=== PATIENT | female | born 1980 | race Hispanic/Latino ===

== ENCOUNTER 2017-03-27 18:13 | Emergency (ER) | payer MEDICAID ==
[2017-05-09] MEDS ORDERED: fish oil PO (10:13)
[2017-05-09] MEDS ORDERED: multivitamin PO (10:13)
[2017-05-09] MEDS ORDERED: CALC-1121 PO (10:13)
[2017-05-09] MEDS ORDERED: L.AC1CAP6 PO (10:13)
== END 2017-03-27 18:57 | disposition home or self-care (01) ==
LOC: EDH 18:13
DX: R20.2 Paresthesia of skin (principal); K21.9 Gastro-esophageal reflux disease without esophagitis; B96.81 Helicobacter pylori [H. pylori] as the cause of diseases classified elsewhere; D64.9 Anemia, unspecified; Z87.891 Personal history of nicotine dependence
CPT/HCPCS: 99281

== ENCOUNTER 2017-04-01 00:42 | Emergency (ER) | payer MEDICAID ==
[2017-04-01 01:22] LABS: APPEARANCE,URINE Clear (CLEAR); BILIRUBIN,URINE Negative (NEGATIVE); COLOR,URINE Yellow (YELLOW); GLUCOSE, URINE (UA) Negative (NEGATIVE); KETONES,URINE Negative (NEGATIVE); LEUKOCYTE ESTERASE ,URINE Small (NEGATIVE); NITRATE,URINE Negative (NEGATIVE); OCCULT BLOOD,URINE Negative (NEGATIVE); PROTEIN,URINE Negative (NEGATIVE); UROBILINOGEN,URINE 0.2 mg/dL (0.2-1.0)
[2017-04-01 01:24] LABS: BACTERIA,URINE Rare /HPF (None Seen); RBC,URINE None Seen /HPF (0-1); SQUAMOUS EPITHELIAL CELL,UR Rare /LPF (0-2); WBC,URINE 0-1 /HPF (0-1)
[2017-05-09] MEDS ORDERED: CALC-1121 PO (10:13)
[2017-05-09] MEDS ORDERED: fish oil PO (10:13)
[2017-05-09] MEDS ORDERED: L.AC1CAP6 PO (10:13)
[2017-05-09] MEDS ORDERED: multivitamin PO (10:13)
== END 2017-04-01 01:47 | disposition home or self-care (01) ==
LOC: EDH 00:42
DX: R10.13 Epigastric pain (principal); R20.2 Paresthesia of skin; B96.81 Helicobacter pylori [H. pylori] as the cause of diseases classified elsewhere; K21.9 Gastro-esophageal reflux disease without esophagitis; D64.9 Anemia, unspecified
CPT/HCPCS: 81001; 81025

== ENCOUNTER 2017-05-10 08:44 | Day surgery (SDC) | payer MEDICAID ==
[~2017-05-10] VITALS: Ht 162.6 cm; Wt 70.7 kg
[~2017-05-10 08:44] MED LIST: CALC-1121 PO; L.AC1CAP6 PO; SODIUM CHLORIDE 0.9% 1000ML 1,000 ML IV ONE; fish oil PO; multivitamin PO
[2017-05-10 10:44] VITALS: BP_SYST 87; BP_SYST 99; BP_DIAS 51; BP_DIAS 59
[2017-05-10] MEDS ORDERED: PROPOFOL 10 MG/ML 20ML VIAL IV ONE ×2 (11:28)
[2017-05-10 11:50] VITALS: BP 99/57
[2017-05-10 11:55] VITALS: BP 104/58
[2017-05-10 12:00] VITALS: BP 107/54
[2017-05-10 12:09] VITALS: BP 109/63
== END 2017-05-10 12:20 | disposition home or self-care (01) ==
LOC: ENDO 08:44 → DAH 08:44 → ENDO 12:20
PROVIDERS: ATTEND Internal Medicine
DX: K59.01 Slow transit constipation (principal); K57.30 Diverticulosis of large intestine without perforation or abscess without bleeding; K64.8 Other hemorrhoids; K31.89 Other diseases of stomach and duodenum; K29.60 Other gastritis without bleeding; F41.9 Anxiety disorder, unspecified; Z98.890 Other specified postprocedural states; Z79.899 Other long term (current) drug therapy
CPT/HCPCS: 43239; 45378; 81025; 88305; 88342; A4606; J2704 ×2; J7030

== ENCOUNTER 2018-11-16 19:31 | Emergency (ER) | payer BC, MEDICAID ==
[~2018-11-16 19:31] MED LIST changes: -SODIUM CHLORIDE 0.9% 1000ML 1,000 ML IV ONE
== END 2018-11-16 20:03 | disposition home or self-care (01) ==
LOC: EDH 19:31
DX: S86.911A Strain of unspecified muscle(s) and tendon(s) at lower leg level, right leg, initial encounter (principal); K21.9 Gastro-esophageal reflux disease without esophagitis; Z88.1 Allergy status to other antibiotic agents; Z72.0 Tobacco use; X58.XXXA Exposure to other specified factors, initial encounter; Y93.89 Activity, other specified; Y92.39 Other specified sports and athletic area as the place of occurrence of the external cause; Y99.8 Other external cause status

== ENCOUNTER 2020-04-07 09:01 | Emergency (ER) | payer BC ==
[2020-04-07 09:34] LABS: BASOPHILS % (AUTO) 0.4 % (0.0-5.0); EOSINOPHILS % (AUTO) 0.9 % (0.0-8.0); HEMATOCRIT 39.3 % (36-48); LYMPHOCYTES % (AUTO) 32.1 % (21.0-51.0); MEAN CORPUSCULAR HEMOGLOBIN 29.3 pg (27.0-33.0); MEAN CORPUSCULAR HGB CONC 32.8 g/dL (32.0-36.0); MEAN CORPUSCULAR VOLUME 89.1 fL (79-99); MONOCYTES % (AUTO) 5.8 % (3.0-13.0); NEUTROPHILS % (AUTO) 60.5 % (40.0-77.0); PLATELET COUNT (AUTO) 379 K/uL (130-400); RED BLOOD CELL COUNT(AUTO) 4.41 MIL/uL (4.00-5.50); RED CELL DISTRIBUTION WIDTH 11.8 % (11.0-15.5); WHITE BLOOD COUNT (AUTO) 6.9 K/uL (4.8-10.8)
[2020-04-07 09:45] LABS: CREATININE 0.9 mg/dL (0.5-1.5)
[2020-04-07 09:50] LABS: BILIRUBIN,TOTAL 0.3 mg/dL (0.2-1.0); TOTAL PROTEIN, SERUM 8.4 g/dL (6.0-8.3)
== END 2020-04-07 10:47 | disposition home or self-care (01) ==
LOC: EDH 09:01
DX: M79.18 Myalgia, other site (principal); G93.3 Postviral and related fatigue syndromes; K21.9 Gastro-esophageal reflux disease without esophagitis; Z98.890 Other specified postprocedural states; Z87.891 Personal history of nicotine dependence; Z88.1 Allergy status to other antibiotic agents
CPT/HCPCS: 36415; 80053; 85025

== ENCOUNTER 2020-10-06 07:44 | Observation (INO) | payer BC ==
[~2020-10-06] VITALS: Ht 162.6 cm; Wt 74.4 kg
[2020-10-06 08:12] LABS: BASOPHILS % (AUTO) 0.7 % (0.0-5.0); EOSINOPHILS % (AUTO) 0.7 % (0.0-8.0); HEMATOCRIT 38.9 % (36-48); LYMPHOCYTES % (AUTO) 37.1 % (21.0-51.0); MEAN CORPUSCULAR HEMOGLOBIN 29.9 pg (27.0-33.0); MEAN CORPUSCULAR HGB CONC 33.2 g/dL (32.0-36.0); MONOCYTES % (AUTO) 5.8 % (3.0-13.0); NEUTROPHILS % (AUTO) 55.5 % (40.0-77.0); PLATELET COUNT (AUTO) 337 K/uL (130-400); RED BLOOD CELL COUNT(AUTO) 4.32 MIL/uL (4.00-5.50); RED CELL DISTRIBUTION WIDTH 12.2 % (11.0-15.5); WHITE BLOOD COUNT (AUTO) 5.5 K/uL (4.8-10.8)
[2020-10-06 08:14] VITALS: BP 122/65
[2020-10-06 08:20] LABS: CREATININE 0.8 mg/dL (0.5-1.5); POTASSIUM 3.9 mmol/L (3.5-5.1)
[2020-10-06 08:21] LABS: APPEARANCE,URINE Cloudy (CLEAR); BILIRUBIN,URINE Negative (NEGATIVE); COLOR,URINE Yellow (YELLOW); GLUCOSE, URINE (UA) Negative (NEGATIVE); KETONES,URINE 40 mg/dL (NEGATIVE); LEUKOCYTE ESTERASE ,URINE Moderate (NEGATIVE); NITRATE,URINE Negative (NEGATIVE); OCCULT BLOOD,URINE Nonhemolyzed Trace (NEGATIVE); PROTEIN,URINE Trace mg/dL (NEGATIVE)
[2020-10-06 08:24] LABS: ALBUMIN 3.9 g/dL (3.5-5.0); BILIRUBIN,TOTAL 0.4 mg/dL (0.2-1.0); TOTAL PROTEIN, SERUM 8.2 g/dL (6.0-8.3)
[2020-10-06 08:32] LABS: BACTERIA,URINE Few /HPF (None Seen); RBC,URINE 0-1 /HPF (0-1); SQUAMOUS EPITHELIAL CELL,UR Moderate /HPF (0-2); WBC,URINE 0-1 /HPF (0-1)
[2020-10-06 11:17] VITALS: BP 112/66
[2020-10-06] MEDS ORDERED: GADOTERATE MEGLUMINE 10 MMOL/20 ML VIAL IV ONE (11:18)
[2020-10-06 11:37] LABS: THYROID STIMULATING HORMONE 1.65 uIU/mL (0.36-3.74)
[2020-10-06 16:00] VITALS: BP 133/78
[2020-10-06] MEDS ORDERED: TEMAZEPAM 7.5 MG CAPSULE PO PRN (16:00)
[2020-10-06] MEDS ORDERED: TRAMADOL HCL 50 MG TABLET PO PRN (16:00)
[2020-10-06 20:00] VITALS: BP 96/66
[2020-10-06] MEDS ORDERED: PNV1COMB11 PO (20:31)
[2020-10-07 00:08] VITALS: BP 103/65
[2020-10-07 00:55] LABS: CREATINE KINASE, TOTAL 65 U/L (21-232); MYOGLOBIN 20 ng/mL (10-92); TROPONIN I < 0.04 ng/mL (0.00-0.06)
[2020-10-07 04:00] VITALS: BP 105/63
[2020-10-07 04:53] LABS: BASOPHILS % (AUTO) 0.4 % (0.0-5.0); EOSINOPHILS % (AUTO) 1.2 % (0.0-8.0); MEAN CORPUSCULAR HEMOGLOBIN 29.7 pg (27.0-33.0); MEAN CORPUSCULAR HGB CONC 33.6 g/dL (32.0-36.0); MEAN CORPUSCULAR VOLUME 88.5 fL (79-99); MONOCYTES % (AUTO) 6.4 % (3.0-13.0); NEUTROPHILS % (AUTO) 57.5 % (40.0-77.0); PLATELET COUNT (AUTO) 338 K/uL (130-400); RED BLOOD CELL COUNT(AUTO) 4.07 MIL/uL (4.00-5.50); RED CELL DISTRIBUTION WIDTH 12.2 % (11.0-15.5); WHITE BLOOD COUNT (AUTO) 8.2 K/uL (4.8-10.8)
[2020-10-07 05:01] LABS: HEMOGLOBIN A1C 4.8 % (4.0-6.0)
[2020-10-07 05:11] LABS: CREATININE 0.8 mg/dL (0.5-1.5); POTASSIUM 3.9 mmol/L (3.5-5.1)
[2020-10-07 07:30] VITALS: BP 110/69
[2020-10-07] MEDS ORDERED: GADOTERATE MEGLUMINE 10 MMOL/20 ML VIAL IV ONE (08:55)
[2020-10-07] MEDS ORDERED: ASPIRIN 81MG CHEW TAB PO SCH (09:00)
[2020-10-07 11:00] VITALS: BP 104/64
== END 2020-10-07 17:00 | disposition home or self-care (01) ==
LOC: EDH 07:44 → EDHIP 10:30 → INTOOBSV 10:30 → 3DH 13:19
PROVIDERS: ADMIT Internal Medicine Infectious Disease; ATTEND Internal Medicine Infectious Disease
DX: G45.9 Transient cerebral ischemic attack, unspecified (principal); R53.1 Weakness; G47.00 Insomnia, unspecified; R07.89 Other chest pain; R20.8 Other disturbances of skin sensation; F12.90 Cannabis use, unspecified, uncomplicated; G51.0 Bell's palsy; R29.701 NIHSS score 1; Z98.891 History of uterine scar from previous surgery; Z79.82 Long term (current) use of aspirin
CPT/HCPCS: 36415 ×2; 70450; 70544; 70549; 70553; 72156; 72157; 72158; 80048; 80053; 80061; 81001; 82550 ×3; 83036; 83735; 83874; 84439; 84443; 84484 ×4; 85025 ×2; 86038; 86215; 86235 ×7; 86431; 87088; 93005; 93306; 93356; 99285; A9575 ×2; G0378 ×30

== ENCOUNTER 2023-08-08 19:51 | Emergency (ER) | payer OTHER ==
[~2023-08-08] VITALS: Ht 162.6 cm; Wt 83.0 kg
[~2023-08-08 19:51] MED LIST changes: -L.AC1CAP6 PO; +PNV1COMB11 PO; -multivitamin PO
[2023-08-08 21:33] VITALS: BP 114/65; PULSE 75; RESP 18; O2SAT 99
== END 2023-08-08 21:39 | disposition home or self-care (01) ==
LOC: EDH 19:51
DX: M79.661 Pain in right lower leg (principal); F41.9 Anxiety disorder, unspecified; E78.00 Pure hypercholesterolemia, unspecified; Z79.899 Other long term (current) drug therapy; Z98.890 Other specified postprocedural states; Z88.8 Allergy status to other drugs, medicaments and biological substances
CPT/HCPCS: 93971

== ENCOUNTER 2024-03-01 07:19 | Emergency (ER) | payer OTHER ==
[~2024-03-01] VITALS: Ht 162.6 cm; Wt 85.3 kg
[2024-03-01 07:20] VITALS: O2SAT 98
[2024-03-01 07:25] VITALS: BP 109/71; PULSE 88; RESP 16; TEMP 98.1
[2024-03-01 08:07] LABS: APPEARANCE,URINE CLEAR (CLEAR); BILIRUBIN,URINE NEGATIVE (NEGATIVE); COLOR,URINE LIGHT-YELLOW (YELLOW); GLUCOSE, URINE (UA) NEGATIVE (NEGATIVE); KETONES,URINE 20 mg/dL (NEGATIVE); LEUKOCYTE ESTERASE ,URINE NEGATIVE Leu/uL (NEGATIVE); NITRATE,URINE NEGATIVE (NEGATIVE); OCCULT BLOOD,URINE NEGATIVE (NEGATIVE); PROTEIN,URINE NEGATIVE (NEGATIVE); UROBILINOGEN,URINE 0.2 mg/dL (0.2-1.0)
[2024-03-01] MEDS: LACTATED RINGERS 1000ML 1,000 ML IV ONE (08:20)
[2024-03-01 08:22] LABS: ADD UA MICROSCOPIC YES
[2024-03-01 08:25] LABS: BACTERIA,URINE RARE /HPF (None Seen); MUCUS,URINE RARE LPF (None Seen); RBC,URINE 0-1 /HPF (0-1); SQUAMOUS EPITHELIAL CELL,UR MOD /HPF (0-2); WBC,URINE 0-1 /HPF (0-1)
[2024-03-01 08:43] LABS: BASOPHILS # (AUTO) 0.06 K/uL (0.00-0.20); BASOPHILS % (AUTO) 0.9 % (0.0-5.0); EOSINOPHILS # (AUTO) 0.08 K/uL (0.00-0.70); EOSINOPHILS % (AUTO) 1.2 % (0.0-8.0); HEMATOCRIT 34.7 % (36-48); IMMATURE GRANULOCYTE ABSOLUTE 0.04 K/uL (0-1); LYMPHOCYTES # (AUTO) 1.7 K/uL (1.0-4.8); LYMPHOCYTES % (AUTO) 24.3 % (21.0-51.0); MEAN CORPUSCULAR HEMOGLOBIN 29.4 pg (27.0-33.0); MEAN CORPUSCULAR VOLUME 86.3 fL (79-99); MONOCYTES # (AUTO) 0.5 K/uL (0.1-1.0); MONOCYTES % (AUTO) 7.4 % (3.0-13.0); NEUTROPHILS # (AUTO) 4.5 K/uL (1.8-7.7); NEUTROPHILS % (AUTO) 65.6 % (40.0-77.0); PLATELET COUNT (AUTO) 386 K/uL (130-400); RED BLOOD CELL COUNT(AUTO) 4.02 MIL/uL (4.00-5.50); RED CELL DISTRIBUTION WIDTH 12.7 % (11.0-15.5); WHITE BLOOD COUNT (AUTO) 6.8 K/uL (4.8-10.8)
--- NOTE | 2024-03-01 08:43 | HMCIMG ---
CHEST 1VW REASON: cp COMPARISON: 12/29/2022 FINDINGS: Single view of the chest was obtained. Lungs are clear. Heart size is normal. There is no pulmonary vascular congestion. Mediastinum and bony thorax appear unremarkable. IMPRESSION: 1. Normal single view chest x-ray.
[2024-03-01 09:06] LABS: CREATININE 0.8 mg/dL (0.5-1.0); POTASSIUM 3.8 mmol/L (3.5-5.1)
[2024-03-01 09:10] LABS: ALBUMIN 3.6 g/dL (3.5-5.0); BILIRUBIN,TOTAL 0.3 mg/dL (0.2-1.0); TOTAL PROTEIN, SERUM 7.8 g/dL (6.0-8.3)
[2024-03-01] MEDS: PANTOPrazole 40 MG/VIAL IVP ONE (09:13)
[2024-03-01] MEDS: ketOROlac 15MG/ML VIAL (15MG/ML) IV ONE (09:51)
--- NOTE | 2024-03-01 09:57 | ERN ---
General Chief Complaint: Flank Pain Stated Complaint: LFT FLANK PAIN Time Seen by MD: 07:21 Source: patient History of Present Illness Initial Comments Patient is a 43-year-old female coming in complaining of left lower abdominal discomfort as well as gastritis. Per patient she has a history of gastritis frequently presents with epigastric discomfort. She states he was taking some medicine for gastritis which includes Govind chewable. Allergies: Coded Allergies: ciprofloxacin (Unverified Allergy, Unknown, 11/16/18) amoxicillin (Unverified Adverse Reaction, Severe, 03/01/24) FLANK PAIN AND RIB PAIN clavulanic acid (Unverified Adverse Reaction, Severe, 03/01/24) FLANK PAIN AND RIB PAIN Home Meds Reported Medications Vits #33/Iron/FA/Dha (Select-Ob + Dha Pack) 29 Mg Iron-1 Mg-250 Mg Combo..pkg, 1 EACH PO DAILY, COMB.PKG 10/06/20 Calcium Carb/Magnesium Hydrox (Rolaids Chewable Tablet) 1 Each Tab.chew, 1 EACH PO Q4HPRN PRN for q4hprn, TAB.CHEW HEARTBURN 05/09/17 [fish oil] No Conflict Check, 1 TAB PO DAILY 05/09/17 Past Medical History Past Medical History: High Cholesterol Past Surgical History: BTL, Surgical History Other: SEPTOPLASTY, FINGER, BTL REVERSAL Family History Family History: Negative Social History Social History: Smokers, Lives with family Female( History) : 3 Para: 1 Aborts: 2 ROS Dictation CONSTITUTIONAL: No chills, no fever, no weakness, no diaphoresis, no malaise. HEAD/FACE: No signs of trauma. EENT: No eye pain, no blurred vision, no tearing, no double vision, no ear pain, no ear discharge, no nose pain, no nasal congestion, no throat pain, no throat swelling, no mouth pain. RESPIRATORY: No cough, no orthopnea, no SOB, no stridor, no wheezing. CARDIOVASCULAR: No chest pain, no edema, no palpitations, no syncope. GASTROINTESTINAL/ABDOMINAL: abdominal pain, constipation, no diarrhea, no nausea, no vomiting. GENITOURINARY: No abnormal discharge, no dysuria, no frequent urination, no hematuria. No complaints of pain in the genitals. MUSCULOSKELETAL: No back pain, no gout, no joint pain, no joint swelling, no muscle pain, no muscle stiffness, no neck pain. INTEGUMENTARY: No change in color, no change in hair/nails, no dryness, no lesion, no lumps, no rash. NEUROLOGICAL/PSYCH: No anxiety, not depressed, no emotional problem, no headache, no numbness, no pre-existing deficit, no history of seizures, no tremors, no weakness. HEMATOLOGIC/LYMPHATIC: Not anemic, no history of blood clots, no apparent bleeding, no bruising, glands not swollen. All Systems Negative, Except as Noted. Physical Exam Physical Exam Dictation VITAL SIGNS: Reviewed. GENERAL APPEARANCE: Alert, oriented x3, no acute distress, obese. HEAD AND FACE: Non-traumatic. EYES: PERRL, pink conjunctivas, eyelid no trauma, anterior chamber clear. EARS: Pinnas intact and no signs of trauma or erythema. Ear canals clear and no discharge. TMs no erythema. NOSE: No discharge, no bleeding. OROPHARYNX: Mouth normal, teeth no caries, tongue pink. Pharynx clear, no erythema. Tonsils no exudates, no abscesses noted. Mucous membrane moist. NECK: Supple, non-tender, no thyromegaly, no masses, no JVD, no bruits. BREAST: Deferred. CHEST: No tenderness, no crepitus, no paradoxical movement, no retractions. LUNGS: Clear, well-ventilated, symmetric, no rales, no wheezing, no rhonchi, no stridor, good breath sounds bilaterally. HEART: Regular rate, regular rhythm, no murmur, no gallops. VASCULAR: No peripheral edema. ABDOMEN: Soft, positive bowel sounds, nondistended, no guarding, lower abdominal wall left tender, no rebound, no masses no hepatomegaly, no splenomegaly, no Pitt's sign, no hernias. RECTAL: Deferred. GENITAL: Deferred. NEUROLOGICAL: Normal speech, gross motor function intact, gross sensory function intact. MUSCULOSKELETAL: Neck nontender, full range of motion, back nontender, full range of motion. EXTREMITIES: Nontender, full range of motion. SKIN: Color pink, dry, no turgor, no rash, no lacerations, no abrasions, no contusions. LYMPHATICS: Deferred. Results Laboratory and Microbiology Lab and Micro Result Laboratory Tests Test 03/01/24 07:56 03/01/24 07:58 White Blood Count 6.8 K/uL (4.8-10.8) Red Blood Count 4.02 MIL/uL (4.00-5.50) Hemoglobin 11.8 g/dL (12.0-16.0) L Hematocrit 34.7 % (36-48) L Mean Corpuscular Volume 86.3 fL (79-99) Mean Corpuscular Hemoglobin 29.4 pg (27.0-33.0) Mean Corpuscular Hemoglobin Concent 34.0 g/dL (32.0-36.0) Red Cell Distribution Width 12.7 % (11.0-15.5) Platelet Count 386 K/uL (130-400) Mean Platelet Volume 8.7 fL (7.5-10.5) Immature Granulocyte % (Auto) 0.6 % (0-1) Neutrophils (%) (Auto) 65.6 % (40.0-77.0) Lymphocytes (%) (Auto) 24.3 % (21.0-51.0) Monocytes (%) (Auto) 7.4 % (3.0-13.0) Eosinophils (%) (Auto) 1.2 % (0.0-8.0) Basophils (%) (Auto) 0.9 % (0.0-5.0) Neutrophils # (Auto) 4.5 K/uL (1.8-7.7) Lymphocytes # (Auto) 1.7 K/uL (1.0-4.8) Monocytes # (Auto) 0.5 K/uL (0.1-1.0) Eosinophils # (Auto) 0.08 K/uL (0.00-0.70) Basophils # (Auto) 0.06 K/uL (0.00-0.20) Absolute Immature Granulocyte (auto 0.04 K/uL (0-1) Nucleated Red Blood Cells 0.0 % (0.0-0.19) Sodium Level 140 mmol/L (136-145) Potassium Level 3.8 mmol/L (3.5-5.1) Chloride Level 103 mmol/L (101-111) Carbon Dioxide Level 28 mmol/L (21-32) Blood Urea Nitrogen 8 mg/dL (7-18) Creatinine 0.8 mg/dL (0.5-1.0) Glomerular Filtration Rate Calc 94 mL/min (>90) Random Glucose 85 mg/dL (70-105) Total Calcium 8.8 mg/dL (8.5-10.1) Total Bilirubin 0.3 mg/dL (0.2-1.0) Aspartate Amino Transf (AST/SGOT) 52 U/L (10-37) H Alanine Aminotransferase (ALT/SGPT) 150 U/L (12-78) H Alkaline Phosphatase 70 U/L (50-136) Total Creatine Kinase 41 U/L (21-232) # Troponin I High Sensitivity 7 ng/L (4-50) Total Protein 7.8 g/dL (6.0-8.3) Albumin 3.6 g/dL (3.5-5.0) Serum Test, Qualitative NEGATIVE (NEGATIVE) Urine Color LIGHT-YELLOW (YELLOW) Urine Appearance CLEAR (CLEAR) Urine pH 7.0 (5.0-8.0) Urine Specific [place] 1.010 (1.001-1.031) Urine Protein NEGATIVE mg/dL (NEGATIVE) Urine Glucose (UA) NEGATIVE mg/dL (NEGATIVE) Urine Ketones 20 mg/dL (NEGATIVE) H Urine Occult Blood NEGATIVE (NEGATIVE) Urine Nitrate NEGATIVE (NEGATIVE) Urine Bilirubin NEGATIVE mg/dL (NEGATIVE) Urine Urobilinogen 0.2 mg/dL (0.2-1.0) Urine Leukocyte Esterase NEGATIVE Isaac/uL Urine RBC 0-1 /HPF (0-1) Urine WBC 0-1 /HPF (0-1) Urine Squamous Epithelial Cells MOD /HPF (0-2) Urine Bacteria RARE /HPF (None Seen) Labs Reviewed?: Yes EKG/XRAY/US/CT/MRI EKG Comment 03/01/2024 time 8:09 a.m. Ventricular rate 83 Sinus rhythm MS [address] wave elevation or depression X-RAY Comment IMAGING REPORT Signed PATIENT: HE SUAREZ MR#: [id number] : 1980 SEX: F AGE: 43 LOCATION: [facility] ORDER 6 STATUS: REG ER REPORT#: [id number] SERVICE 5 REASON: cp ORDERING PHYSICIAN: EMMA PEACE MD PROCEDURE: CXR1VW - CHEST 1VW CHEST 1VW REASON: cp COMPARISON: 12/29/2022 FINDINGS: Single view of the chest was obtained. Lungs are clear. Heart size is normal. There is no pulmonary vascular congestion. Mediastinum and bony thorax appear unremarkable. IMPRESSION: 1. Normal single view chest x-ray. DICTATED BY: JAZMINE CALERO MD DATE: 03/01/24839 ELECTRONICALLY SIGNED BY: JAZMINE CALERO MD DATE: 03/01/24842 [facility] MDM: Differential diagnosis: Gastritis, GERD, constipation Patient is a 43-year-old female coming in to be evaluated for lower left abdominal discomfort. Patient states that this has been ongoing for a couple of days. Along with the patient has a was chest pressure epigastric discomfort. Patient also states that she has been told she had elevated liver enzymes. Laboratory workup was positive for elevated liver enzymes. Patient's history is also that does not go to the restroom earlier early. Patient will be given medication constipation as well as long-term management of gastritis. I advised her appropriate follow up with PCP for ongoing evaluation of her chronic gastritis. ED Course Orders Procedure Category Date Status Time Cbc With Differential LAB 03/01/24 Complete 07:26 Chest 1vw RAD 03/01/24 Resulted 07:26 12 Lead Ekg Tracing- EKG 03/01/24 Logged Technical 07:26 Lactated Ringers PHA 03/01/24 Complete 1000ml (Lactated 07:30 Creatine Kinase, Total LAB 03/01/24 Complete 07:26 Troponin I High LAB 03/01/24 Complete Sensitivity 07:26 Urinalysis Profile LAB 03/01/24 Complete 07:26 Comprehensive LAB 03/01/24 Complete Metabolic Panel 07:26 Testing, LAB 03/01/24 Complete Serum Hcg 08:44 Drug Screen Urine LAB 03/01/24 Logged 08:45 Pantoprazole 40mg Inj PHA 03/01/24 Complete (Protonix 40mg Inj 09:00 Ketorolac PHA 03/01/24 In Process Tromethamine 15mg/Ml 10:00 Current Medications Medications (Trade) Dose Ordered Sig/Kim Route PRN Reason Start Time Stop Time Status Last Admin Dose Admin Ketorolac Tromethamine (toRADol) 15 mg ONCE ONCE IV 03/01/24 10:00 03/01/24 10:01 03/01/24 09:51 Lactated Ringer's 1,000 ml @ 0 mls/hr ONCE ONCE IV 03/01/24 07:30 03/01/24 07:32 DC 03/01/24 08:20 Pantoprazole Sodium (PROTonix 40MG INJ) 40 mg ONCE ONCE IVP 03/01/24 09:00 03/01/24 09:01 DC 03/01/24 09:13 Vital Signs Date Time Temp Pulse Resp B/P (MAP) Pulse Ox O2 Delivery O2 Flow Rate FiO2 03/01/24 07:25 98.1 88 16 109/71 98 Room Air 0 03/01/24 07:20 98.1 88 16 109/71 98 Room Air* 0 21 DX & DISP Disposition: Discharge Departure Impression: Primary Impression: Gastritis Additional Impression: Constipation Condition: Stable Scripts Linaclotide (Linzess) 72 Mcg Capsule 72 MCG PO DAILY for 30 Days, #30 CAP Prov: EMMA PEACE MD 03/01/24 Pantoprazole Sodium (Protonix) 40 Mg Ectab 1 TAB PO DAILY for 30 Days, #30 TAB 0 Refills Prov: EMMA PEACE MD 03/01/24 Additional Instructions: FOLLOW-UP WITH PRIMARY CARE PROVIDER IN 1 TO 2 DAYS. TAKE MEDICATIONS DIRECTED HERE IN THE EMERGENCY ROOM. OKAY TO CONTINUE HOME MEDICATIONS UNLESS OTHERWISE DISCUSSED DURING YOUR VISIT IN THE EMERGENCY ROOM TODAY. RETURN TO YOUR NEAREST EMERGENCY ROOM IF SYMPTOMS WORSEN OR IF THERE IS NO IMPROVEMENT. CALL 911 IF YOU NEED IMMEDIATE ASSISTANCE. TAKE TYLENOL [id number] NEEDED AND IF NO CONTRAINDICATIONS ARE PRESENT. INCREASE ORAL HYDRATION. A WOUND CULTURE OR URINE CULTURE WAS ORDERED HERE IN THE EMERGENCY ROOM DEPARTMENT PLEASE FOLLOW-UP WITH PRIMARY CARE PROVIDER AND ADVISE THEM TO GET REPEAT PORTS FROM OUR FACILITY. IF YOU HAD ANY LEE WRAP/SPLINTS THAT WERE APPLIED HERE, PLEASE DO NOT REMOVE THEM UNTIL YOU SEE YOUR PRIMARY CARE OR SPECIALTY. Referrals: Referrals: JEWEL WALTERS (PCP) Time of Disposition: 10:00 EMMA PEACE MD Mar 01, 2024 09:57
[2024-03-01] MEDS ORDERED: PANT40TA55 PO (10:01)
[2024-03-01] MEDS ORDERED: LINA72CA PO (10:01)
[2024-03-01 10:36] LABS: AMPHET/METH SCREEN,URINE NEGATIVE (NEGATIVE); BARBITURATE SCREEN, URINE NEGATIVE (NEGATIVE); BENZODIAZEPINES SCREEN,URINE NEGATIVE (NEGATIVE); CANNABINOID SCREEN,URINE NEGATIVE (NEGATIVE); COCAINE SCREEN,URINE NEGATIVE (NEGATIVE); OPIATE SCREEN,URINE NEGATIVE (NEGATIVE); PHENCYCLIDINE SCREEN,URINE NEGATIVE (NEGATIVE)
--- NOTE | 2024-03-02 05:22 | EKG ---
[facility] Test Date: 2024-03-01 Test Time: 08:09:50 Pat Name: HE SUAREZ Department: ED Room: Gender: F Mastic Man: [id number] : 1980 Requested By: EMMA PEACE Order Number: [id number] Reading MD: Issa Cole Measurements Intervals [place] Rate: 83 P: 27 [place]: 157 QRS: 67 QRSD: 91 T: 59 QT: 365 QTc: 429 Interpretive Statements Sinus rhythm Compared to ECG 10/06/2020 08:28:07 Sinus arrhythmia no longer present Electronically Signed On 03-03-2024 17:22:38 [employer] by Issa Cole Please click the below link to view image of tracing.
== END 2024-03-01 10:17 | disposition home or self-care (01) ==
LOC: EDH 07:19
DX: K29.70 Gastritis, unspecified, without bleeding (principal); K59.00 Constipation, unspecified; E78.00 Pure hypercholesterolemia, unspecified; F17.200 Nicotine dependence, unspecified, uncomplicated; Z88.0 Allergy status to penicillin; Z88.1 Allergy status to other antibiotic agents; Z98.51 Tubal ligation status
CPT/HCPCS: 99285; 96374; 96361; 71045; 96375; 82550; 84484; 80053; 80305; 84703; 85025; 36415; 93005; 81001; J7120; J2470; J1885; 99284

== ENCOUNTER 2024-03-01 23:29 | Emergency (ER) | payer OTHER ==
[~2024-03-01 23:29] MED LIST changes: +LINA72CA PO; +PANT40TA55 PO
--- NOTE | 2024-03-01 23:30 | NUR ---
PT SIGNED IN WANTING TO TALK TO A DOCTOR ABOUT HER VISIT HERE AT [facility] THIS MORNING AND TREATMENT RECEIVED. I EXPLAINED IT WAS A DIFFERENT DOCTOR AND IF I COULD HELP.. PT WANTED TO REVIEW HER CHART. I EXPLAINED I WAS UNALE TO DO THAT. PT REFUSED TRIAGE OR TREATMENT
== END 2024-03-01 23:32 | disposition left against medical advice (07) ==
LOC: EDH 23:29
DX: R10.9 Unspecified abdominal pain (principal); Z53.21 Procedure and treatment not carried out due to patient leaving prior to being seen by health care provider

== ENCOUNTER 2024-04-11 12:01 | Emergency (ER) | payer OTHER ==
[~2024-04-11] VITALS: Ht 162.6 cm; Wt 78.9 kg
--- NOTE | 2024-04-11 12:38 | NUR ---
Pending results for CT EXAM PT in ER [facility]
--- NOTE | 2024-04-11 13:38 | ERN ---
General Stated Complaint: RIGHT SIDE UTERINE PAIN Time Seen by MD: 12:03 Time Seen by Midlevel: 12:03 Source: patient History of Present Illness Initial Comments Patient is a 44-year-old female presenting to the emergency department with sudden onset of right lower quadrant abdominal pain that started this morning. Pain radiates to the right flank area. Denies any dysuria, hematuria, fever, chills, or any other symptoms at this time. Allergies: Coded Allergies: ciprofloxacin (Unverified Allergy, Unknown, 11/16/18) amoxicillin (Unverified Adverse Reaction, Severe, 03/01/24) FLANK PAIN AND RIB PAIN clavulanic acid (Unverified Adverse Reaction, Severe, 03/01/24) FLANK PAIN AND RIB PAIN Home Meds Active Scripts Linaclotide (Linzess) 72 Mcg Capsule, 72 MCG PO DAILY for 30 Days, #30 CAP Prov:EMMA PEACE MD 03/01/24 Pantoprazole Sodium (Protonix) 40 Mg Ectab, 1 TAB PO DAILY for 30 Days, #30 TAB 0 Refills Prov:EMMA PEACE MD 03/01/24 Reported Medications Vits #33/Iron/FA/Dha (Select-Ob + Dha Pack) 29 Mg Iron-1 Mg-250 Mg Combo..pkg, 1 EACH PO DAILY, COMB.PKG 10/06/20 Calcium Carb/Magnesium Hydrox (Rolaids Chewable Tablet) 1 Each Tab.chew, 1 EACH PO Q4HPRN PRN for q4hprn, TAB.CHEW HEARTBURN 05/09/17 [fish oil] No Conflict Check, 1 TAB PO DAILY 05/09/17 Past Medical History Past Medical History: High Cholesterol Past Surgical History: BTL, Surgical History Other: SEPTOPLASTY, FINGER, BTL REVERSAL Family History Family History: Negative Social History Social History: Smokers, Lives with family Female( History) : 3 Para: 1 Aborts: 2 ROS Dictation CONSTITUTIONAL: Negative except for HPI HEAD/FACE: Negative except for HPI EENT: Negative except for HPI RESPIRATORY: Negative except for HPI GASTROINTESTINAL/ABDOMINAL: Negative except for HPI GENITOURINARY: Negative except for HPI MUSCULOSKELETAL: Negative except for HPI INTEGUMENTARY: Negative except for HPI NEUROLOGICAL/PSYCH: Negative except for HPI HEMATOLOGIC/LYMPHATIC: Negative except for HPI All Systems Negative, Except as noted above. 13 point review of systems assessed and all negative except for above. Review of Systems: was completed, & the rest were negative. Physical Exam Physical Exam Dictation Vital Signs reviewed General Appearance: Alert, oriented x 3, no acute distress, well developed, nourished. Head and Face: non-traumatic. Eyes: PERRL, pink conjunctivas, eyelid no trauma, anterior chamber with arcus senilis. Ears: Pinnas intact and no signs of trauma or erythema ear canals clear and no discharge TM no erythema Nose: No discharge, no bleeding. Oropharynx: Mouth normal, tongue pink, pharynx clear,no erythema, tonsils no exudates, no abscesses noted, mucous membrane moist Neck: Supple, non-tender, no thyromegaly, no masses, no JVD, no bruits Breast:Deferred Chest:No tenderness, no crepitus, no paradoxical movement, no retractions Lungs:Clear, well-ventilated, symmetric, no rales, no wheezing, no rhonchi, no stridor, good breath sounds bilaterally Heart: Regular rate, regular rhythm, no murmur, no gallops Vascular: no peripheral edema, Abdomen: Soft, positive bowel sounds, nondistended, no guarding, Right lower quadrant abdominal tenderness, no rebound, no masses no hepatomegaly, no splenomegaly, no Pitt's sign, no hernias. Rectal: Deferred Genital: Deferred Neurological: Normal speech, motor function intact, sensory function intact Musculoskeletal: Neck nontender, full range of motion, back nontender, full range of motion, Extremities: nontender, full range of motion Skin: Color pink, dry, no turgor, no rash, no lacerations, no abrasions, no contusions. Lymphatic: Deferred Results Laboratory and Microbiology Lab and Micro Result Laboratory Tests Test 04/11/24 13:21 04/11/24 13:48 White Blood Count 10.7 K/uL (4.8-10.8) Red Blood Count 4.06 MIL/uL (4.00-5.50) Hemoglobin 11.7 g/dL (12.0-16.0) L Hematocrit 35.8 % (36-48) L Mean Corpuscular Volume 88.2 fL (79-99) Mean Corpuscular Hemoglobin 28.8 pg (27.0-33.0) Mean Corpuscular Hemoglobin Concent 32.7 g/dL (32.0-36.0) Red Cell Distribution Width 13.3 % (11.0-15.5) Platelet Count 418 K/uL (130-400) H Mean Platelet Volume 9.0 fL (7.5-10.5) Immature Granulocyte % (Auto) 0.6 % (0-1) Neutrophils (%) (Auto) 64.9 % (40.0-77.0) Lymphocytes (%) (Auto) 15.6 % (21.0-51.0) L Monocytes (%) (Auto) 4.1 % (3.0-13.0) Eosinophils (%) (Auto) 13.6 % (0.0-8.0) H Basophils (%) (Auto) 1.2 % (0.0-5.0) Neutrophils # (Auto) 6.9 K/uL (1.8-7.7) Lymphocytes # (Auto) 1.7 K/uL (1.0-4.8) Monocytes # (Auto) 0.4 K/uL (0.1-1.0) Eosinophils # (Auto) 1.45 K/uL (0.00-0.70) H Basophils # (Auto) 0.13 K/uL (0.00-0.20) Absolute Immature Granulocyte (auto 0.06 K/uL (0-1) Nucleated Red Blood Cells 0.0 % (0.0-0.19) Sodium Level 140 mmol/L (136-145) Potassium Level 3.8 mmol/L (3.5-5.1) Chloride Level 103 mmol/L (101-111) Carbon Dioxide Level 30 mmol/L (21-32) Blood Urea Nitrogen 9 mg/dL (7-18) Creatinine 0.7 mg/dL (0.5-1.0) Glomerular Filtration Rate Calc 110 mL/min (>90) Random Glucose 108 mg/dL (70-105) H Total Calcium 9.1 mg/dL (8.5-10.1) Serum Test, Qualitative NEGATIVE (NEGATIVE) Urine Color LIGHT-YELLOW (YELLOW) Urine Appearance CLEAR (CLEAR) Urine pH 6.0 (5.0-8.0) Urine Specific [place] 1.015 (1.001-1.031) Urine Protein NEGATIVE mg/dL (NEGATIVE) Urine Glucose (UA) NEGATIVE mg/dL (NEGATIVE) Urine Ketones 60 mg/dL (NEGATIVE) H Urine Occult Blood NEGATIVE (NEGATIVE) Urine Nitrate NEGATIVE (NEGATIVE) Urine Bilirubin NEGATIVE mg/dL (NEGATIVE) Urine Urobilinogen 0.2 mg/dL (0.2-1.0) Urine Leukocyte Esterase NEGATIVE Isaac/uL Urine RBC 2-5 /HPF (0-1) H Urine WBC 0-1 /HPF (0-1) Urine Squamous Epithelial Cells FEW /HPF (0-2) Urine Bacteria RARE /HPF (None Seen) Labs Reviewed?: Yes MDM MDM: Differential diagnosis: Urinary tract infection, pyelonephritis, ureter stone, ovarian torsion, ovarian cyst, uterine fibroids There are no social concerns with this patient. Prescription drug management Prescriptions will include: Toradol Medical management and examination interpretation discussions were had by me with other qualified healthcare professionals as indicated for the patient's care. ED Course Orders Procedure Category Date Status Time Cbc With Differential LAB 04/11/24 Complete 12:20 Basic Metabolic Panel LAB 04/11/24 Complete 12:20 Testing, LAB 04/11/24 Complete Serum Hcg 12:20 Urinalysis Profile LAB 04/11/24 Complete 12:20 Ct Abdomen/Pelvis W/O CT 04/11/24 Resulted Contrast 12:20 Us Pelvic Non-Ob US 04/11/24 Resulted Limited 12:20 *Nursing CPOE 04/11/24 Transmitted Communication: 12:20 Acetaminophen 500mg PHA 04/11/24 Complete Tab (Tylenol 500mg T 14:00 Ketorolac PHA 04/11/24 Verified Tromethamine 30mg/Ml 15:00 Current Medications Medications (Trade) Dose Ordered Sig/Kim Route PRN Reason Start Time Stop Time Status Last Admin Dose Admin Acetaminophen (TYLenol 500MG TAB) 500 mg ONCE ONCE PO 04/11/24 14:00 04/11/24 14:01 DC 04/11/24 14:52 Vital Signs Date Time Temp Pulse Resp B/P (MAP) Pulse Ox O2 Delivery O2 Flow Rate FiO2 04/11/24 14:52 98.8 81 16 138/88 100 Room Air* 0 21 04/11/24 13:30 98.8 80 18 119/81 99 Room Air 0 [place] [address] [address] IMAGING REPORT Signed PATIENT: HE SUAREZ MR#: [id number] : 1980 SEX: F AGE: 44 LOCATION: [facility] ORDER 21 STATUS: REG ER [facility] REPORT#: [id number] SERVICE 19 REASON: r/o ovarian torsion ORDERING PHYSICIAN: ALEJANDRA ZELAYA PROCEDURE: PELVLTD - US PELVIC NON-OB LIMITED Exam Type: US PELVIC NON-OB LIMITED Clinical Information: r/o ovarian torsion Comparison: None Findings: Uterus is anteverted and shows an anterior subserosal fibroid measuring 2.2 cm as well as a smaller posterior subserosal fibroid measuring 1.5 cm. Endometrial lining is normal in thickness at 11 mm. No intrauterine or ectopic seen. The ovaries are normal in size and echogenicity. The right ovary measures 1.8 x 1.4 x 2 cm. The left ovary measures 2.2 x 1.7 x 1.7 cm. Bilateral ovarian follicles are seen. Vascularity is preserved. Vascular Doppler flow exam and spectral analysis of waveforms analysis is unremarkable bilaterally. There is preserved vascularity to both ovaries on Doppler evaluation. Specifically, there is no evidence of ovarian torsion. No free fluid is noted throughout the cul-de-sac. There are no adnexal abnormalities. No other significant abnormalities are seen. No fluid collections or masses or free fluid are identified in the pelvis. Impression: Uterine fibroids. No evidence of ovarian torsion. DICTATED BY: CHRYSTAL HYMAN MD DATE: 04/11/241331 ELECTRONICALLY SIGNED BY: CHRYSTAL HYMAN MD DATE: 04/11/24 [address] [place] [address] IMAGING REPORT Signed PATIENT: HE SUAREZ MR#: [id number] : 1980 SEX: F AGE: 44 LOCATION: [facility] ORDER 21 STATUS: REG ER REPORT#: [id number] SERVICE 19 REASON: r/o ureter stone ORDERING PHYSICIAN: ALEJANDRA ZELAYA PROCEDURE: ABD PEL WO - CT ABDOMEN/PELVIS W/O CONTRAST Exam Type: CT ABDOMEN/PELVIS W/O CONTRAST Clinical Information: r/o ureter stone Comparison: None CT Dose Index (CTDI): 10.20 mGy Dose Length Product (DLP): 530.00 total mGy-cm PROTOCOL: Routine noncontrast helical scanning of the abdomen and pelvis was performed at 5mm collimation. Findings: No evidence of nephro or ureterolithiasis is found. No hydronephrosis or ureteral dilatation is seen. The lung bases are clear. The stomach is unremarkable. It shows no wall thickening. No gross ulceration is seen. It is not overly distended. There are no surrounding inflammatory changes. No wall lesions are identified to suggest cancer. The spleen is unremarkable. It is not enlarged. The pancreas shows normal anatomy. It is not fatty replaced. It shows no lesions. The pancreatic duct is not dilated. The gallbladder is unremarkable. It shows no cholelithiasis. The gallbladder wall is normal in thickness. There is no pericholecystic fluid. The is no acute or chronic inflammation noted. The adrenal glands are unremarkable. There is no enlargement. No lesions are noted. The liver is unremarkable. It shows no focal masses. The appendix is unremarkable. It shows no evidence of inflammation. No appendicolith is seen. The small bowel is unremarkable. There is no evidence of dilatation to suggest obstruction. No evidence of adynamic ileus is seen. There is no small bowel wall thickening to suggest enteritis. The colon is unremarkable. The urinary bladder is unremarkable. There is no wall thickening to suggest tumor or inflammation. There are no intraluminal calculi. There are no diverticula. There is no evidence of chronic bladder outlet obstruction. There is no evidence of urinary bladder distention to suggest urinary retention. The other pelvic structures are unremarkable. The bony and vascular structures are unremarkable for the patient's age. IMPRESSION: NEGATIVE CT SCAN OF THE ABDOMEN AND PELVIS. NO RENAL STONES. NO ACUTE PATHOLOGY OR INFLAMMATION SEEN. This study was performed using dose reduction techniques to include automated exposure control and/or adjustment of the mA and/or kV according to patient size. DICTATED BY: CHRYSTAL HYMAN MD DATE: 04/11/24 1432 ELECTRONICALLY SIGNED BY: CHRYSTAL HYMAN MD DATE: 04/11/24 1442 DX & DISP Disposition: Discharge Departure Impression: Primary Impression: Uterine fibroid Condition: Stable Scripts Ketorolac Tromethamine (Ketorolac Tromethamine) 10 Mg Tablet 1 TAB PO BID for pain for 5 Days, #10 TAB 0 Refills Prov: ALEJANDRA ZELAYA 04/11/24 Additional Instructions: Your blood work today is unremarkable. Your CT scan of the abdomen/pelvis does not reveal any acute abnormality. Your pelvic ultrasound reveals uterine fibroids. There was no evidence of ovarian torsion. You will need to follow up with an OBGYN for further evaluation. Return to the ER if you develop any new or worsening symptoms Referrals: JEWEL WALTERS (PCP) ERNST DICKINSON MD Time of Disposition: 14:57 I have reviewed the case, and I agree with, Diagnosis and Plan I performed the substantive portion of the visit. I have reviewed and personally made and approve the management plan that is documented in the note by myself or the HANDY. I acknowledge for responsibility for the patient's management plan. ALEJANDRA ZELAYA Apr 11, 2024 13:38
[2024-04-11 13:55] LABS: BASOPHILS # (AUTO) 0.13 K/uL (0.00-0.20); BASOPHILS % (AUTO) 1.2 % (0.0-5.0); EOSINOPHILS # (AUTO) 1.45 K/uL (0.00-0.70); EOSINOPHILS % (AUTO) 13.6 % (0.0-8.0); HEMATOCRIT 35.8 % (36-48); IMMATURE GRANULOCYTE ABSOLUTE 0.06 K/uL (0-1); LYMPHOCYTES # (AUTO) 1.7 K/uL (1.0-4.8); LYMPHOCYTES % (AUTO) 15.6 % (21.0-51.0); MEAN CORPUSCULAR HEMOGLOBIN 28.8 pg (27.0-33.0); MEAN CORPUSCULAR HGB CONC 32.7 g/dL (32.0-36.0); MEAN CORPUSCULAR VOLUME 88.2 fL (79-99); MONOCYTES # (AUTO) 0.4 K/uL (0.1-1.0); MONOCYTES % (AUTO) 4.1 % (3.0-13.0); NEUTROPHILS # (AUTO) 6.9 K/uL (1.8-7.7); NEUTROPHILS % (AUTO) 64.9 % (40.0-77.0); PLATELET COUNT (AUTO) 418 K/uL (130-400); RED BLOOD CELL COUNT(AUTO) 4.06 MIL/uL (4.00-5.50); RED CELL DISTRIBUTION WIDTH 13.3 % (11.0-15.5); WHITE BLOOD COUNT (AUTO) 10.7 K/uL (4.8-10.8)
[2024-04-11 14:01] LABS: APPEARANCE,URINE CLEAR (CLEAR); BILIRUBIN,URINE NEGATIVE (NEGATIVE); COLOR,URINE LIGHT-YELLOW (YELLOW); GLUCOSE, URINE (UA) NEGATIVE (NEGATIVE); KETONES,URINE 60 mg/dL (NEGATIVE); LEUKOCYTE ESTERASE ,URINE NEGATIVE Leu/uL (NEGATIVE); NITRATE,URINE NEGATIVE (NEGATIVE); OCCULT BLOOD,URINE NEGATIVE (NEGATIVE); PROTEIN,URINE NEGATIVE (NEGATIVE); UROBILINOGEN,URINE 0.2 mg/dL (0.2-1.0)
[2024-04-11 14:03] LABS: ADD UA MICROSCOPIC YES
[2024-04-11 14:07] LABS: CREATININE 0.7 mg/dL (0.5-1.0); POTASSIUM 3.8 mmol/L (3.5-5.1)
[2024-04-11 14:07] LABS: BACTERIA,URINE RARE /HPF (None Seen); MUCUS,URINE RARE LPF (None Seen); SQUAMOUS EPITHELIAL CELL,UR FEW /HPF (0-2); WBC,URINE 0-1 /HPF (0-1)
--- NOTE | 2024-04-11 14:42 | HMCIMG ---
Exam Type: CT ABDOMEN/PELVIS W/O CONTRAST Clinical Information: r/o ureter stone Comparison: None CT Dose Index (CTDI): 10.20 mGy Dose Length Product (DLP): 530.00 total mGy-cm PROTOCOL: Routine noncontrast helical scanning of the abdomen and pelvis was performed at 5mm collimation. Findings: No evidence of nephro or ureterolithiasis is found. No hydronephrosis or ureteral dilatation is seen. The lung bases are clear. The stomach is unremarkable. It shows no wall thickening. No gross ulceration is seen. It is not overly distended. There are no surrounding inflammatory changes. No wall lesions are identified to suggest cancer. The spleen is unremarkable. It is not enlarged. The pancreas shows normal anatomy. It is not fatty replaced. It shows no lesions. The pancreatic duct is not dilated. The gallbladder is unremarkable. It shows no cholelithiasis. The gallbladder wall is normal in thickness. There is no pericholecystic fluid. The is no acute or chronic inflammation noted. The adrenal glands are unremarkable. There is no enlargement. No lesions are noted. The liver is unremarkable. It shows no focal masses. The appendix is unremarkable. It shows no evidence of inflammation. No appendicolith is seen. The small bowel is unremarkable. There is no evidence of dilatation to suggest obstruction. No evidence of adynamic ileus is seen. There is no small bowel wall thickening to suggest enteritis. The colon is unremarkable. The urinary bladder is unremarkable. There is no wall thickening to suggest tumor or inflammation. There are no intraluminal calculi. There are no diverticula. There is no evidence of chronic bladder outlet obstruction. There is no evidence of urinary bladder distention to suggest urinary retention. The other pelvic structures are unremarkable. The bony and vascular structures are unremarkable for the patient's age. IMPRESSION: NEGATIVE CT SCAN OF THE ABDOMEN AND PELVIS. NO RENAL STONES. NO ACUTE PATHOLOGY OR INFLAMMATION SEEN. This study was performed using dose reduction techniques to include automated exposure control and/or adjustment of the mA and/or kV according to patient size.
[2024-04-11 14:52] VITALS: BP 138/88; PULSE 81; RESP 16; TEMP 98.8; O2SAT 100
[2024-04-11] MEDS: acetaMINOPHEN 500 MG TABLET PO ONE (14:52)
[2024-04-11] MEDS ORDERED: KETO10TA2 PO (14:58)
[2024-04-11] MEDS: ketOROlac 30MG VIAL (30MG/ML) IM ONE (15:25)
== END 2024-04-11 15:44 | disposition home or self-care (01) ==
LOC: EDH 12:01
DX: D25.9 Leiomyoma of uterus, unspecified (principal); E78.00 Pure hypercholesterolemia, unspecified; F17.200 Nicotine dependence, unspecified, uncomplicated; Z79.899 Other long term (current) drug therapy; Z88.0 Allergy status to penicillin; Z88.1 Allergy status to other antibiotic agents; Z98.51 Tubal ligation status
CPT/HCPCS: 99285; 74176; 76857; 80048; 84703; 85025; 81001; 36415; 96372; J1885